=== PATIENT | male | born 1975 | race Caucasian/White ===

== ENCOUNTER 2021-04-29 20:28 | Emergency (ER) | payer BC ==
[2021-04-29] MEDS ORDERED: predniSONE 20 MG TAB ONE (21:06)
== END 2021-04-29 21:12 | disposition home or self-care (01) ==
LOC: NAV ERS 20:28
DX: J20.8 Acute bronchitis due to other specified organisms (principal); J06.9 Acute upper respiratory infection, unspecified; I10 Essential (primary) hypertension; F17.210 Nicotine dependence, cigarettes, uncomplicated
CPT/HCPCS: 93005; J7512